=== PATIENT | male | born 1980 | race American Indian/Alaskan Native ===

== ENCOUNTER 2018-12-24 13:29 | Emergency (ER) | payer OTHER ==
--- NOTE | 2018-12-24 13:56 | EDPHY ---
H & P Stated Complaint: nasal congestion, ear pain, abd pain nausea Source: Patient Exam Limitations: No limitations - Medical/Surgical History Hx Asthma: No Hx Chronic Respiratory Disease: No Hx Diabetes: No Hx Cardiac Disease: No Hx Renal Disease: No Hx Cirrhosis: No Hx Alcoholism: No Hx HIV/AIDS: No Hx Splenectomy or Spleen Trauma: No Other PMH: liver failure episode 2013 - Social History Smoking Status: Current every day smoker Time Seen by Provider: 12/24/18 13:56 HPI/ROS: HPI: This is a 38-year-old male who presents with Chief Complaint: Multiple constitutional symptoms Location: Chest Quality: Nonproductive cough Duration: 2-3 days Signs and Symptoms: no fever, + nausea, no vomiting, no diarrhea, no urinary symptoms, no chest pain, no shortness of breath, no wheezing, + nonproductive cough, + sore throat, no neck stiffness, no joint pain, no swollen glands, no ear pain, no rash Timing: Acute, constant Severity: Moderate Context: Patient reports that he is working in the area for the last week for his job when he developed 3 days ago and nonproductive cough accompanied by nausea, sore throat, nasal congestion. Patient is a tobacco user and drinks alcohol quite regularly. Did not receive influenza vaccine this year. No history of lung disease. Modifying Factors: [id number] medications with no relief Comment: ROS: A comprehensive 10 system review of systems is otherwise negative aside from elements mentioned in the history of present illness. MEDICAL/SURGICAL/SOCIAL HISTORY: Medical history: Generally healthy. Does not take any regular medications. Surgical history: Denies Social history: Tobacco user. Employed. Daily alcohol user. Family history noncontributory. CONSTITUTIONAL: Ill but nontoxic-appearing middle-aged white male, awake and alert, no obvious distress HEENT: Atraumatic and normocephalic, PERRL, EOMI. Nares patent; clear rhinorrhea; mild nasal mucosal edema. Tympanic membranes clear. Oropharynx clear, tonsils 1+ with mild erythema; uvula midline; no exudate and moist pink mucosa. Airway patent. No lymphadenopathy. No meningismus. Cardiovascular: Normal S1/S2, regular rate, regular rhythm, without murmur rub or gallop. PULMONARY/CHEST: Symmetrical and nontender. Clear to auscultation bilaterally. Good air movement. No accessory muscle usage. Dry cough noted. ABDOMEN: Soft, nondistended, nontender, no rebound, no guarding, no peritoneal signs, no masses or organomegaly. No CVAT. EXTREMITIES: 2/2 pulses, strength 5/5, no deformities, no clubbing, no cyanosis or edema. NEUROLOGICAL: no focal neuro deficits. GCS 15. SKIN: Warm and dry, no erythema. no rash. Good capillary refill. (Loreta Salcido) Constitutional: Initial Vital Signs Temperature (C) 37.0 C 12/24/18 13:33 Heart Rate 84 12/24/18 13:33 Respiratory Rate 16 12/24/18 13:33 Blood Pressure 112/75 12/24/18 13:33 O2 Sat (%) 96 12/24/18 13:33 O2 Delivery Mode Room Air Allergies/Adverse Reactions: No Known Allergies Allergy (Unverified 12/24/18 13:32) Home Medications: Medication Instructions Recorded Albuterol Sulfate [Proair Hfa] 1 - 2 puffs IH Q4 PRN #1 hfa.aer.ad 12/24/18 Azithromycin [Zithromax] 250 mg PO DAILY #6 tab 12/24/18 predniSONE [Deltasone] 40 mg PO DAILY 4 Days #8 tablet 12/24/18 Medical Decision Making - Diagnostics Imaging Results: Imaging Impressions Chest X-Ray 12/24/18 14:15 Impression: Clear lungs. No pneumonia or effusion. ED Course/Re-evaluation: Vital signs reviewed and stable upon arrival. No systemic signs. Immunocompetent. Chest x-ray and medications ordered Given DuoNeb, p. O. Prednisone 60 mg and p.o. Zofran 4 mg Patient does not have a fever and not a Tamiflu candidate; therefore influenza test not ordered. Chest x-ray my read shows no opacity, no effusion, no pneumothorax, no widened mediastinum Due to history of tobacco use, no primary care; will treat for bacterial bronchitis Given azithromycin, albuterol inhaler, short burst of steroids No signs of sepsis, otitis media, sinusitis, respiratory distress This patient was seen under the supervision of my secondary supervising physician. I evaluated care for this patient with attending. (Loreta Salcido) I did not see this patient while he was in the emergency department. However his care was discussed with the PA while the patient was in the department. I agree with treatment plan and management (Jimmy Jaime) Differential Diagnosis: Adult fever including but not limited to viral syndromes including influenza, bronchitis, sinusitis, COPD exacerbation, pneumonia and sepsis. (Loreta Salcido) - Data Points Medications Given: Discontinued Medications Albuterol/Ipratropium (Duoneb) 3 ml IH EDNOW ONE Stop: 12/24/18 14:17 Last Admin: 12/24/18 14:23 Dose: 3 ml Ondansetron HCl (Zofran Odt) 4 mg PO EDNOW ONE Stop: 12/24/18 14:17 Last Admin: 12/24/18 14:23 Dose: 4 mg Prednisone (Prednisone) 60 mg PO EDNOW ONE Stop: 12/24/18 14:17 Last Admin: 12/24/18 14:23 Dose: 60 mg Departure - Departure Disposition: Home, Routine, Self-Care Clinical Impression: Acute bacterial bronchitis, Tobacco user Condition: Good Instructions: Acute Bronchitis (ED) Additional Instructions: Chest x-ray today showed no signs of pneumonia. It appears that you have bronchitis. Consume a minimum of 8-10 glasses of water or electrolyte fluid replacement drinks that include Gatorade, Powerade, Pedialyte. Take antibiotic as directed. Do not skip a dose. Take steroid burst as directed. Start taking steroids tomorrow, 12/25/2018, as for steroid given in the emergency room. Use albuterol inhaler every 4 hr as needed for shortness of breath, wheezing. Please consider tobacco cessation. Referrals: [facility],. [Clinic] - As per Instructions Stand Alone Forms: Work Excuse Prescriptions: Albuterol Sulfate [Proair Hfa] 1 - 2 puffs IH Q4 PRN #1 hfa.aer.ad PRN Reason: Short Of Breath/Dyspnea Azithromycin [Zithromax] 250 mg PO DAILY #6 tab predniSONE [Deltasone] 40 mg PO DAILY 4 Days #8 tablet
[2018-12-24] MEDS ORDERED: IPRATROPIUM/ALBUTEROL 3 ML DEYVIAL IH ONE (14:16)
[2018-12-24] MEDS ORDERED: ONDANSETRON DISINTEGRATING 4 MG TAB PO ONE (14:16)
[2018-12-24] MEDS ORDERED: predniSONE 20 MG TAB PO ONE (14:16)
[2018-12-24 15:04] VITALS: BP 121/70
== END 2018-12-24 15:03 | disposition home or self-care (01) ==
DX: J20.8 Acute bronchitis due to other specified organisms (principal); F17.210 Nicotine dependence, cigarettes, uncomplicated
CPT/HCPCS: J7512